=== PATIENT | female | born 1980 | race Caucasian/White ===

== ENCOUNTER 2021-09-15 22:02 | Emergency (ER) | payer MEDICAID, OTHER ==
[~2021-09-15] VITALS: Ht 152.4 cm; Wt 72.6 kg
[~2021-09-15 22:02] MED LIST: FLAGYL500 MG PO; IBUPROFEN 800800 M1 PO; NAPROSYN500 MG PO; NORCO 5-325 TA1 EACH PO; PENICILLIN VK500 MG PO; PHENTERMINE HCL15 MG; PREDNISONE 10 M10 M1 PO; PROMETHAZINE/C118 ML PO; ZPAK PO
[2021-09-15 22:10] VITALS: BP 155/92
[2021-09-15] MEDS ORDERED: HYDROCODON-ACE1 EAC8 PO (22:26)
[2021-09-15] MEDS ORDERED: AUGMENTIN 875-1 EACH PO (22:27)
[2021-09-15] MEDS ORDERED: IBUPROFEN 800800 MG PO (22:27)
== END 2021-09-15 22:41 | disposition home or self-care (01) ==
LOC: M.ERS 22:02
DX: K08.89 Other specified disorders of teeth and supporting structures (principal); F17.210 Nicotine dependence, cigarettes, uncomplicated